=== PATIENT | female | born 1945 | race Caucasian/White ===

== ENCOUNTER 2021-10-26 12:37 | Day surgery (SDC) | payer MEDICARE ==
[2021-10-26] VITALS (8 sets, daily range): BP systolic 147–176; BP diastolic 75–91
[~2021-10-26] VITALS: Ht 165.1 cm; Wt 73.3 kg
[~2021-10-26 12:37] MED LIST: INDOCYANINE GREEN 25 MG/10 ML VIAL IV ONE; LEVO150T8 PO; ceFAZolin inj. 2,000 MG in dextrose 5%-water 100 ML IV ONE; famotidine 20mg tablet PO ONE; ringers solution, lacted 1,000 ML IV SCH
--- NOTE | 2021-10-26 14:00 | NUR ---
PT'S NEGATIVE COVID TEST DONE AT [facility]-SEEN ON [facility] BY TWO RN'S ([place] FREEMAN) ALONG WITH DR. SOTO-OK WITH BUT UNABLE TO PRINT.
[2021-10-26 15:39] LABS: ISTAT CREATININE 0.7 mg/dL (0.6-1.1); ISTAT HGB 13.3 g/dl (12.0-16.0); ISTAT IONIZED CALCIUM 1.23 mmol/L (1.03-1.32); ISTAT K 3.7 mmol/L (3.5-5.1); POC BUN/CREATININE RATIO 14.3 (6.6-38.0)
[2021-10-26] MEDS ORDERED: morphine 2 MG/ML inj. syringe IV PRN (15:40)
[2021-10-26] MEDS ORDERED: ringers solution, lacted 1,000 ML IV SCH (15:40)
[2021-10-26] MEDS ORDERED: hydrALAZINE 20mg/ml inj. IV PRN (15:40)
[2021-10-26] MEDS ORDERED: morphine 4 MG/ML inj SYRINge IV PRN (15:40)
[2021-10-26] MEDS ORDERED: ondansetron/PF 4mg/2ml inj IV PRN (15:40)
[2021-10-26] MEDS ORDERED: labetalol 20mg/4ml (5mg/ml) syringe IV PRN (15:40)
[2021-10-26] MEDS ORDERED: meperidine/PF 25mg/ml syringe IV PRN ×3 (15:40)
[2021-10-26] MEDS ORDERED: proCHLORperazine 10 MG/2 ml inj IV PRN (15:40)
[2021-10-26] MEDS ORDERED: acetaminophen 1,000mg/100ml IV 100 ML IV PRN (15:40)
[2021-10-26] MEDS ORDERED: midazolam 1 mg/ML 2ml injection ONE (15:44)
[2021-10-26] MEDS ORDERED: fentaNYL /PF 50mcg/ml 5ml ampule ONE (15:44)
[2021-10-26] MEDS ORDERED: LIDOcaine 1%/PF 5ML 10 MG/ML VIAL ONE (15:45)
[2021-10-26] MEDS ORDERED: propofol inj 20 ML IV ONE (15:45)
[2021-10-26] MEDS ORDERED: LIDOcaine 1% 30ml preserv. free vial ONE (15:53)
[2021-10-26] MEDS ORDERED: BUPIVAcaine 0.5% inj/PF 30 ML ONE (15:53)
[2021-10-26] MEDS ORDERED: acetaminophen 1,000mg/100ml IV 100 ML IV ONE (15:56)
[2021-10-26] MEDS ORDERED: rocuronium 10mg/ml inj IV ONE (15:58)
[2021-10-26] MEDS ORDERED: BUPIVAcaine 0.5% inj/PF 30 ml vial IJ ONE (16:05)
[2021-10-26] MEDS ORDERED: HYDROcodone/acetaminophen 5mg/325mg tablet PO PRN (17:20)
[2021-10-26] MEDS ORDERED: HYDROcodone/acetaminophen 10/325mg tab PO PRN (17:20)
--- NOTE | 2021-10-26 17:20 | NUR ---
Received from OR via [facility], accompanied by Anesthesiologist DR. EUCEDA and report given by Anesthesiolgist. 20G PIV TO LEFT AC WITH LR RUNNING AT 100ML/HR. ANTERIOR ABDOMEN WITH BANDAIDS X4 CDI. VSS. ON 10L MASK. WILL CONTINUE TO MONITOR.
--- NOTE | 2021-10-26 18:55 | NUR ---
PATIENT MEETS DISCHARGE CRITERIA. DISCHARGED WITH ALL BELONGINGS. , SANTOSH DRIVING PATIENT.
== END 2021-10-26 18:55 | disposition home or self-care (01) ==
LOC: PAS 12:37
PROVIDERS: ATTEND Surgery
DX: K80.10 Calculus of gallbladder with chronic cholecystitis without obstruction (principal); Z79.899 Other long term (current) drug therapy; Z88.2 Allergy status to sulfonamides; Z90.710 Acquired absence of both cervix and uterus; Z98.890 Other specified postprocedural states
CPT/HCPCS: 47563; 80047; 82948; 93005; J0131; J0690; J2250; J2704; J3010; J3490; J7030; J7060; J7120; S0020; Z7506; Z7508; Z7512; A4215; A4618; A7000